=== PATIENT | female | born 1960 | race Caucasian/White ===

== ENCOUNTER 2016-07-16 03:46 | Emergency (ER) | payer OTHER ==
[2016-07-16 04:27] LABS: #Basophils 0.1 thou/uL (0.0-0.2); #Eosinphils 0.4 thou/uL (0.0-0.7); #Lymphocytes 3.4 thou/uL (1.20-3.40); #Monocytes 0.7 thou/uL (0.11-0.59); #Neutrophils 4.3 thou/uL (1.40-6.50); %Basophils 1.4 % (0.0-1.0); %Monocytes 7.7 % (0.0-10.0); Mean Platelet Volume 8.2 fL (7.4-10.4); White Blood Cell (WBC) Count 8.8 thou/uL (4.8-10.8)
[2016-07-16 04:30] LABS: PTT 31.8 SEC (22.9-36.1); Prothrombin Time 12.7 SEC (12.0-14.7)
[2016-07-16 04:39] LABS: ALT (SGPT) 18 U/L (0-55); AST (SGOT) 17 U/L (5-34); Alkaline Phosphatase 64 U/L (40-150); Anion Gap 11 mmol/L (10-20); BUN (Urea Nitrogen) 14 mg/dL (9.8-20.1); Bilirubin, Total 0.3 mg/dL (0.2-1.2); Calc. Creatinine Clearance 0 mL/min (70-130); Calcium 8.9 mg/dL (7.8-10.44); Carbon Dioxide 22 mmol/L (22-29); Chloride 111 mmol/L (98-107); Estimated GFR-MDRD 89; Globulin 2.5 g/dL (2.4-3.5); Protein, Total 6.3 g/dL (6.0-8.3)
[2016-07-16 04:41] LABS: Troponin I 0.016 ng/mL (< 0.028)
--- NOTE | 2016-07-16 07:22 | ERRECORD ---
[facility] EMERGENCY RECORD HPI CVA (03:58 DHAM) CHIEF COMPLAINT: Patient presents for evaluation of motor deficits, arm weakness, facial droop, leg weakness, slurred speech, right arm weakness, right hand weakness, left leg weakness, aphasia. HISTORIAN: History provided by patient, History provided by patient's spouse, , awoke at 0300 with right facial droop, right arm and right leg weakness and completely slurred speech. This lasted 10 minutes and resolved. 15 minutes later it recurred and again lasted 10 minutes and resolved. They drove here which took 20 minutes. She is completely normal at this time. No prior episodes like this in the past. LOCATION: Symptoms are localized, most severe to the right side of the face, most severe to the right arm, most severe to the right leg, most severe to speech. QUALITY: Patient is alert and oriented to person, place and time, [place] coma score is 15. SEVERITY: Current severity of pain rated as 0/10. TIME COURSE: Sudden onset of symptoms, 45, minutes prior to arrival, Symptoms have resolved, are intermittent. ASSOCIATED WITH: No associated anticoagulant use, No associated aphasia, No associated chest pain, Associated with dysarthria, No associated dysphagia, No associated headache, No associated nausea, Denies neck pain, No associated numbness, No associated pain, Associated with paralysis, No associated seizures, Denies syncope, No associated tremors, No associated visual disturbances, denies vertigo, No associated vomiting. RELIEVED BY: Patient's condition relieved by time. RISK FACTORS: Ischemic risk factors, include smoking, No hemorrhagic risk factors, No subarachnoid hemorrhage risk factors, CVA/TIA risk factors, Smoking, Oral contraceptive. NIHSS: CVA assessment findings: Level of consciousness: alert, keenly responsive (0), Questions: answers both questions correctly (0), Commands: performs both tasks correctly (0), Best gaze: normal (0), Visual: no visual loss (0), Facial palsy: normal symmetrical movement (0), Motor Left Arm: no drift, arm stays 90/45 degrees for full 10 seconds (0), Motor Right Arm: no drift, arm stays 90/45 degrees for full 10 seconds (0), Motor left leg: no drift, leg stays at 30 degrees for full five seconds (0), Motor right leg: no drift, leg stays at 30 degrees for full five seconds (0), Limb ataxia absent (0), Sensory: normal, no sensory loss (0), Best language: no aphasia; normal (0), Dysarthria: normal (0), Extinction and Inattention: normal (0), Total score 0. ROS (04:06 DHAM) CONSTITUTIONAL: Negative constitutional review of systems, Historian denies chills, denies fatigue, denies fever. &a-1R&a+25V*p+0X*[id number]*c202B*c15G*c2P*p-0X&a-25V&a+1R Name: Obey Blanco : 1960 F56 MedRec: [id number] AcctNum: [id number] Prepared: ThuJul 16, 2016 09:04 by Interface Page 1 of 6 pMD [facility] EMERGENCY RECORD EYES: Negative eye review of systems. ENT: Negative ears, nose, throat review of systems. CARDIOVASCULAR: Negative cardiovascular review of systems, Historian denies chest pain, denies diaphoresis, denies exercise intolerance, denies palpitations. RESPIRATORY: Negative respiratory review of systems, Historian denies cough, denies shortness of breath, denies sputum, denies wheezing. GI: Negative gastrointestinal review of systems, Historian denies abdominal pain, denies anorexia, denies appetite changes, denies nausea, denies vomiting. GENITOURINARY FEMALE: Historian denies dysuria, denies frequency, denies hesitancy, denies vaginal bleeding, denies vaginal discharge, denies vaginal itching. MUSCULOSKELETAL: Negative musculoskeletal review of systems, Historian denies arthralgias, denies injury, denies myalgias. SKIN: Negative skin review of systems, Historian denies rash, denies skin lesions. NEUROLOGIC: Historian denies confusion, reports focal weakness, reports gait changes, denies headache, reports paralysis, denies paresthesias, denies seizures, reports speech changes. ENDOCRINE: Negative endocrine review of systems. HEMO/LYMPHATIC: Normal hematologic/lymphatic system review. ALLERGIC/IMMUNOLOGIC: Normal allergy/immunologic system review. PSYCHIATRIC: Negative psychiatric review of systems. PAST MEDICAL HISTORY (03:58 AADK) MEDICAL HISTORY: Flu vaccine not up to date, Tetanus not up to date, Pneumococcal vaccine not up to date, Notes: MITRAL PROLAPSE, Past medical history includes cardiac history, unspecified arrhythmia, arrhythmia, SKIPS BEATS. REVIEWED 07/16/16. FEMALE SURGICAL HISTORY: Surgical history of hysterectomy, "TUMMY TUCK", Surgical history of orthopedic surgery, LEFT KNEE x 3 and a 4th for artificial knee replacement. REVIEWED 07/16/16. PSYCHIATRIC HISTORY: Psychiatric history includes, depression, REVIEWED 07/16/16. SOCIAL HISTORY: Patient currently uses tobacco, Patient smokes cigarettes, Patient smokes 1/2 packs per day, Patient denies alcohol use, Patient denies drug use. REVIEWED 07/16/16. FAMILY HISTORY: Maternal history of neurologic disorder, ischemic cerebral vascular accident, Family history includes early coronary artery disease, mother, father, both with CAD/CABG in early to mid 50s. REVIEWED 07/16/16. KNOWN ALLERGIES No Known Allergies (Unconfirmed) No Known Drug Allergies &a-1R&a+25V*p+0X*[id number]*c202B*c15G*c2P*p-0X&a-25V&a+1R Name: Obey Blanco : 1960 F56 MedRec: [id number] AcctNum: [id number] Prepared: ThuJul 16, 2016 09:04 by Interface Page 2 of 6 pMD [facility] EMERGENCY RECORD CURRENT MEDICATIONS (04:10 AADK) Premarin: TABLET : Strength - 0.9 mg : ORAL Patient Dose: 1 tab(s) Oral once a day. Lexapro: TABLET : Strength - 10 mg : ORAL Patient Dose: 1 tab(s) Oral once a day. VITAL SIGNS VITAL SIGNS: BP: 157/89, Pulse: 75, Resp: 20, Temp: 98.4, Pain: 0, O2 sat: 93 on RA, Time: 07/16/2016 03:52. (03:52 AADK) BP: 124/74, Pulse: 66, Resp: 14, O2 sat: 95 on Room Air, Time: 07/16/2016 04:08. (04:08 MVIL) BP: 113/72, Pulse: 68, Resp: 19 (Non-Labored), Pain: 0, O2 sat: 95 on Room Air, Time: 07/16/2016 04:15. (04:15 AADK) BP: 150/82, Pulse: 65, Resp: 14 (Non-Labored), Pain: 0, O2 sat: 96 on Room Air, Time: 07/16/2016 04:30. (04:30 AADK) BP: 125/80, Pulse: 58, Resp: 15 (Non-Labored), Pain: 0, O2 sat: 94 on Room Air, Time: 07/16/2016 04:45. (04:45 AADK) (03:52 AADK) BP: 144/77, Pulse: 65, Resp: 18 (Non-Labored), Pain: 0, O2 sat: 94 on Room Air, Time: 07/16/2016 05:00. (05:00 AADK) BP: 116/74, Pulse: 58, Resp: 15 (Non-Labored), Pain: 0, O2 sat: 93 on Room Air, Time: 07/16/2016 05:15. (05:15 AADK) BP: 129/76, Pulse: 66, Resp: 18 (Non-Labored), Pain: 0, O2 sat: 92 on Room Air, Time: 07/16/2016 05:30. (05:30 AADK) BP: 126/69, Pulse: 67, Resp: 17 (Non-Labored), Pain: 0, O2 sat: 91 on Room Air, Time: 07/16/2016 05:45. (05:45 AADK) BP: 135/79, Pulse: 62, Resp: 17 (Non-Labored), Temp: 98.1 (Oral), Pain: 0, O2 sat: 93 on Room Air, Time: 07/16/2016 06:00. (06:00 AADK) BP: 124/78, Pulse: 60, Resp: 15 (Non-Labored), Pain: 0, O2 sat: 92 on Room Air, Time: 07/16/2016 06:15. (06:15 AADK) BP: 145/81 (Sitting), Pulse: 75, Resp: 20, Pain: 0, O2 sat: 100 on Room Air, Time: 07/16/2016 06:30. (06:30 MVIL) PHYSICAL EXAM (04:07 DHAM) CONSTITUTIONAL: Vital Signs Reviewed, Patient afebrile, Pulse normal, Blood pressure normal, Respiratory rate normal, Normal pulse oximetry, Patient appears non toxic, Patient appears pain free, Patient alert and oriented to person, place and time, Nursing notes reviewed. HEAD: Head exam included findings of head atraumatic, normocephalic. EYES: Eye exam included findings of eyelids normal to inspection, Pupils equally round and reactive to light, Extraocular muscles intact, Conjunctiva normal, Sclera normal, Eye exam included findings of anterior chamber clear. ENT: Ear exam normal, external ear normal, tympanic membranes normal, no foreign body, no drainage, no bleeding, hearing normal, Nose exam normal, no nasal deformity, no bleeding from nares, no &a-1R&a+25V*p+0X*q2381T*c202B*c15G*c2P*p-0X&a-25V&a+1R Name: Obey Blanco : 1960 F56 MedRec: [id number] AcctNum: [id number] Prepared: ThuJul 16, 2016 09:04 by Interface Page 3 of 6 pMD [facility] EMERGENCY RECORD bleeding from hypopharynx, no foreign body visualized, no septal hematoma, no septal necrosis, No turbinate mucosa discharge, Pharynx exam normal, not injected, no swelling, symmetrical, Uvula exam normal, midline, no edema, Tonsil exam normal, not enlarged, no exudates, Mouth exam normal, mucous membranes moist, no drooling, no lesions, no lacerations, no tongue elevation, teeth normal. NECK: Neck exam included findings of normal range of motion, Trachea midline, Thyroid normal, no meningeal signs, no cervical adenopathy, no tenderness, no contusions, no ecchymosis. RESPIRATORY CHEST: Respiratory exam included findings of no respiratory distress, Breath sounds clear, No wheezing, No rales, No rhonchi, Breath sounds not diminished, Chest exam included findings of chest movement symmetrical. CARDIOVASCULAR: Cardiovascular exam included findings of heart rate regular rate and rhythm, Heart sounds normal, normal S1, normal S2, no murmurs, no rub, no gallop. ABDOMEN FEMALE: Abdominal exam included findings of abdomen nontender, Bowel sounds normal, Liver normal, Spleen normal, no distension, no pulsatile masses, no peritoneal signs, no ventral hernia. BACK: Back exam normal. UPPER EXTREMITY: Upper extremity exam normal, Upper extremity exam included findings of inspection normal, no abrasions, no contusions, no deformity, no lacerations, Range of motion normal, Motor strength normal, Sensation intact, Brachial pulse normal, Radial pulse normal. LOWER EXTREMITY: Lower extremity exam normal, Lower extremity exam included findings of inspection normal, no abrasions, no contusions, no deformity, no lacerations, Range of motion normal, Motor strength normal, Sensation intact, Pedal pulse normal, Joel's negative, no edema, no calf tenderness. NEURO: Neuro exam findings include patient oriented to person, place and time, Speech normal, Gait normal, [place] coma scale 15, Memory normal, Cranial nerves intact, Deep tendon reflexes normal, no focal motor deficits, no focal sensory deficits. SKIN: Skin exam included findings of skin warm, dry, and normal in color, no rash. LYMPHATIC: Lymphatic exam normal, Lymphatic exam included findings of cervical nodes normal. PSYCHIATRIC: Psychiatric exam included findings of patient oriented to person place and time, Normal affect, Judgment normal, Insight normal, Remote memory normal, Recent memory normal, Concentration normal, No suicidal ideations, No homicidal ideations. [facility]04:05 [facility] 12 LEAD EKG INTERPRETATION: 12 lead EKG interpreted by Emergency Department Physician at time of study, 12 lead EKG shows normal sinus rhythm, Rate (beats per minute): 69, with no ectopics, No previous EKG available for comparison, Interpretation: normal EKG, Conduction normal, ST segments normal, T waves normal, Deputy normal, Clinical &a-1R&a+25V*p+0X*k9982L*c202B*c15G*c2P*p-0X&a-25V&a+1R Name: Obey Blanco : 1960 F56 MedRec: [id number] AcctNum: [id number] Prepared: ThuJul 16, 2016 09:04 by Interface Page 4 of 6 pMD [facility] EMERGENCY RECORD impression: Normal EKG. RADIOLOGYINTERPRETATION (04:17 [facility] HEAD: Head CT negative, without contrast, no bleed, no mass, no acute ischemic stroke, no acute changes. MEDICATION ADMINISTRATION SUMMARY Drug Name: Adult Low Dose Aspirin, Dose Ordered: 4 tab(s), Route: Oral, Status: Given, Time: 04:25 07/16/2016, Detailed record available in Medication Service section. DOCTOR NOTES TEXT: ABCD2=4. Pt discussed with Dr. Sethi at [facility] at 0424 who accepts in transfer PENDING BED AVAILABILITY. There are 18 holding already. Family is ok with us calling [facility] and we have notified the transfer center at 0430 to contact [facility]. At 0430 while discussing the findings on the CT and our plans for transfer, the pt had a 5-10 second spell of slurred speech and just a hint of ataxia of the right upper extremity. This resolved very quickly. This occurred just after her swallow study and taking ASA 324mg orally. (04:10 DHAM) 0505 I repeated NIHSS=1 (with only the right side sensation feeling different than the left.) She had some right leg drift per the nurse just a minute ago but I do not detect it at this time. she is very accurate with finger to nose bilat but just a bit slower on the right side. Her fine motor skills are decreased on the right hand as evidenced by her "messy signature" with the right hand as well. I suspect the patient will have some ischemic findings on MRI but with her NIHSS being 1-2, she does not appear to be indicated for tpa at this time. I have discussed this with the pt and her . (05:07 DHAM) Transfer center connected us with Dr. Mendez who would not change our care at this point. He would not recommend statin at this point. (05:24 DHAM) Have discussed the pt with Dr. Escalante at [facility] in [place]. The hospitalist has accepted the pt there at 0547. We are awaiting bed assignment but beds are available. (05:43 DHAM) PROBLEM LIST No recorded problems DIAGNOSIS (05:48 DHAM) FINAL: PRIMARY: transient ischemic attack. PRESCRIPTION No recorded prescriptions DISPOSITION PATIENT: Disposition Type: Transfer, Disposition: [facility]. &a-1R&a+25V*p+0X*[id number]*c202B*c15G*c2P*p-0X&a-25V&a+1R Name: Obey Blanco : 1960 F56 MedRec: [id number] AcctNum: [id number] Prepared: ThuJul 16, 2016 09:04 by Interface Page 5 of 6 pMD [facility] EMERGENCY RECORD (05:48 MAX) Patient left the department. (07:08 DORIAN) Hebert: DORIAN=MABEL Bermudez, Penny SANTANA=MD Raza, [employer] MVIL=MABEL Ruano, Kaitlin &a-1R&a+25V*p+0X*o4832T*c202B*c15G*c2P*p-0X&a-25V&a+1R Name: Obey Blanco : 1960 F56 MedRec: [id number] AcctNum: [id number] Prepared: ThuJul 16, 2016 09:04 by Interface Page 6 of 6 pMD MTDD
--- NOTE | 2016-07-16 07:27 | PICIS ---
[facility] EMERGENCY RECORD TRIAGE (ThuJul 16, 2016 03:52 AADK) PATIENT: NAME: Obey Blanco, AGE: 56, GENDER: female, : Gay 1960, TIME OF GREET: ThuJul 16, 2016 03:47, PREFERRED LANGUAGE: Setswana, ETHNICITY: Not or , ECODE BILLING MAP: [facility], SSN: [id number], Zip Code: [address], KG WEIGHT: 66.68 (est.), PHONE: , , , PERSON ID: [id number], PCP: DO LAUREN JOHN SCOTT. (ThuJul 16, 2016 03:52 AADK) COMPLAINT: POSSIBLE STROKE. (ThuJul 16, 2016 03:52 AADK) ADMISSION: URGENCY: 2 Emergent, ADMISSION SOURCE: Home, TRANSPORT: Ambulance- [facility], BED: ER -01. (ThuJul 16, 2016 03:52 AADK) PAIN: No complaint of pain. (03:58 AADK) SIRS SCORING: Heart Rate 55-109 (0), Temp range 96.8-101.1 (0), respiratory rate 12-24 (0), Mental Status altered: no (0), Total SIRS Score 0, Infection or Suspected Infection: No. (03:58 AADK) TRIAGE SCREENING: Patient denies suicidal ideation, Patient denies presence of domestic violence. (03:58 AADK) LMP: LMP: Hysterectomy. (03:58 AADK) PROVIDERS: TRIAGE NURSE: Penny Bermudez RN. (ThuJul 16, 2016 03:52 AADK) PREVIOUS VISIT ALLERGIES: No Known Drug Allergies. (ThuJul 16, 2016 03:52 AADK) No Known Drug Allergies. (03:58 AADK) KNOWN ALLERGIES No Known Allergies (Unconfirmed) No Known Drug Allergies CURRENT MEDICATIONS (04:10 AADK) Premarin: TABLET : Strength - 0.9 mg : ORAL Patient Dose: 1 tab(s) Oral once a day. Lexapro: TABLET : Strength - 10 mg : ORAL Patient Dose: 1 tab(s) Oral once a day. VITAL SIGNS VITAL SIGNS: BP: 157/89, Pulse: 75, Resp: 20, Temp: 98.4, Pain: 0, O2 sat: 93 on RA, Time: 07/16/2016 03:52. (03:52 AADK) BP: 124/74, Pulse: 66, Resp: 14, O2 sat: 95 on Room Air, Time: 07/16/2016 04:08. (04:08 MVIL) BP: 113/72, Pulse: 68, Resp: 19 (Non-Labored), Pain: 0, O2 sat: 95 on Room Air, Time: 07/16/2016 04:15. (04:15 AADK) BP: 150/82, Pulse: 65, Resp: 14 (Non-Labored), Pain: 0, O2 sat: 96 on Room Air, Time: 07/16/2016 04:30. (04:30 AADK) BP: 125/80, Pulse: 58, Resp: 15 (Non-Labored), Pain: 0, O2 sat: 94 on Room Air, Time: 07/16/2016 04:45. (04:45 AADK) (03:52 AADK) BP: 144/77, Pulse: 65, Resp: 18 (Non-Labored), Pain: 0, O2 sat: 94 on &a-1R&a+25V*p+0X*l4268K*c202B*c15G*c2P*p-0X&a-25V&a+1R Name: bOey Blanco : 1960 F56 MedRec: [id number] AcctNum: [id number] Prepared: ThuJul 16, 2016 09:10 by Interface Page 1 of 15 pMD [facility] EMERGENCY RECORD Room Air, Time: 07/16/2016 05:00. (05:00 AADK) BP: 116/74, Pulse: 58, Resp: 15 (Non-Labored), Pain: 0, O2 sat: 93 on Room Air, Time: 07/16/2016 05:15. (05:15 AADK) BP: 129/76, Pulse: 66, Resp: 18 (Non-Labored), Pain: 0, O2 sat: 92 on Room Air, Time: 07/16/2016 05:30. (05:30 AADK) BP: 126/69, Pulse: 67, Resp: 17 (Non-Labored), Pain: 0, O2 sat: 91 on Room Air, Time: 07/16/2016 05:45. (05:45 AADK) BP: 135/79, Pulse: 62, Resp: 17 (Non-Labored), Temp: 98.1 (Oral), Pain: 0, O2 sat: 93 on Room Air, Time: 07/16/2016 06:00. (06:00 AADK) BP: 124/78, Pulse: 60, Resp: 15 (Non-Labored), Pain: 0, O2 sat: 92 on Room Air, Time: 07/16/2016 06:15. (06:15 AADK) BP: 145/81 (Sitting), Pulse: 75, Resp: 20, Pain: 0, O2 sat: 100 on Room Air, Time: 07/16/2016 06:30. (06:30 MVIL) NURSING ASSESSMENT: DYSPHAGIA SCREENING (04:25 AADK) SWALLOWING EVALUATION: Patient clear for swallowing evaluation; no positive responses, Swallowing evaluation approved by Dr. PERSON, Following administration of 3 ounces of water by a cup, patient exhibited no signs or symptoms of aspiration, passed evaluation, Notes: PT WITH POSSIBLE STROKE/TIA SYMPTOMS. NURSING ASSESSMENT: FALL RISK (04:38 AADK) FALL RISK: Fall risk assessment findings include: no history of falls (0), No bed rest greater than 2 days (0), No use of level of consciousness altering agents with mentation or cognitive changes (0), No change in blood pressure (0), No sensory deficits (0), No impaired mobility (0), Neurologic diagnosis (3), No elimination problems (0), No confusion (0), Total score 3. HENDRICH II FALL RISK: Hendrich II Fall Risk assessment findings include patient not confused, disoriented or impulsive, not symptomatic or depressed, no altered elimination, no dizziness or vertigo, female, no antiepileptics (anticonvulsants) administered, no Benzodiazepines administered, Able to rise in a single movement; no loss of balance with steps(0), Total score 0, Notes: FALL RISK SCORE EVALUATED WHEN PT WAS "NORMAL" NOT DURING STROKE/TIA LIKE SYMPTOMS., Score less than 5. Patient not high risk for falls. NURSING ASSESSMENT: NEURO GCS: (6) Obeying command:, (5) Orientated:, (4) Spontaneous eye opening., Result: 15. (03:52 AADK) (6) Obeying command:, (5) Orientated:, (4) Spontaneous eye opening., Result: 15. (04:50 AADK) (6) Obeying command:, (5) Orientated:, (4) Spontaneous eye opening., Result: 15. (06:00 AADK) NIHSS: CVA assessment findings: Level of consciousness: alert, keenly responsive (0), Questions: answers both questions correctly (0), Commands: performs both tasks correctly (0), Best gaze: normal (0), Visual: no visual loss (0), Facial palsy: normal symmetrical movement (0), Motor Left Arm: no drift, arm stays 90/45 degrees for &a-1R&a+25V*p+0X*f6239V*c202B*c15G*c2P*p-0X&a-25V&a+1R Name: Obey Blanco : 1960 F56 MedRec: [id number] AcctNum: [id number] Prepared: ThuJul 16, 2016 09:10 by Interface Page 2 of 15 pMD [facility] EMERGENCY RECORD full 10 seconds (0), Motor Right Arm: no drift, arm stays 90/45 degrees for full 10 seconds (0), Motor left leg: no drift, leg stays at 30 degrees for full five seconds (0), Motor right leg: no drift, leg stays at 30 degrees for full five seconds (0), Limb ataxia absent (0), Sensory: normal, no sensory loss (0), Best language: no aphasia; normal (0), Dysarthria: normal (0), Extinction and Inattention: normal (0), Total score 0. (03:52 AADK) CVA assessment findings: Level of consciousness: alert, keenly responsive (0), Questions: answers both questions correctly (0), Commands: performs both tasks correctly (0), Best gaze: normal (0), Visual: no visual loss (0), Facial palsy: normal symmetrical movement (0), Motor Left Arm: no drift, arm stays 90/45 degrees for full 10 seconds (0), Motor Right Arm: no drift, arm stays 90/45 degrees for full 10 seconds (0), Motor left leg: no drift, leg stays at 30 degrees for full five seconds (0), Motor right leg: drift, leg drifts down but does not hit bed or other support (1), Limb ataxia absent (0), Sensory: mild to moderate sensory loss; patient feels pinprick is less sharp or is dull on the affected side; or there is a loss of superficial pain with pinprick, but patient is aware he/she is being touched (1), Best language: no aphasia; normal (0), Dysarthria: normal (0), Extinction and Inattention: normal (0), Total score 2. (04:50 AADK) CVA assessment findings: Level of consciousness: alert, keenly responsive (0), Questions: answers both questions correctly (0), Commands: performs both tasks correctly (0), Best gaze: normal (0), Visual: no visual loss (0), Facial palsy: normal symmetrical movement (0), Motor Left Arm: no drift, arm stays 90/45 degrees for full 10 seconds (0), Motor Right Arm: drift, arm drifts down but does not hit bed or other support (1), Motor left leg: no drift, leg stays at 30 degrees for full five seconds (0), Motor right leg: drift, leg drifts down but does not hit bed or other support (1), Limb ataxia absent (0), Sensory: mild to moderate sensory loss; patient feels pinprick is less sharp or is dull on the affected side; or there is a loss of superficial pain with pinprick, but patient is aware he/she is being touched (1), Best language: no aphasia; normal (0), Dysarthria: normal (0), Extinction and Inattention: normal (0), Total score 3. (06:00 AADK) CONSTITUTIONAL: Patient arrives, via hospital wheelchair, Unsteady gait, Assistance to cart, History obtained from patient, Patient appears comfortable, Patient cooperative, Patient alert, Oriented to person, place and time, Skin warm, Skin dry, Skin normal in color, Mucous membranes pink, Mucous membranes moist, Patient is well-groomed, Patient complains of POSSIBLE STROKE, PT PRESENTS TO ER WITH POSSIBLE STROKE. PT INITIALLY TRIAGED AT 0347 BUT WAS NOT IN THE COMPUTER FOR DOCUMENTATION. PT WITH RIGHT SIDED WEAKNESS WHEN NURSE WENT TO GET PT IN WAITING AREA. TAKEN TO ER BED #1 VIA HOSPITAL W/C. NOTED SOME DELAYED SPEECH INITIALLY ALSO. NOTIFIED DR PERSON UPON PT ARRIVAL TO BED #1. DR PERSON TO BED #1 WITHIN 1 MINUTE. NIHSS PERFORMED AND SCORE ZERO. PT SAID SHE "CAN'T BELIEVE I'M BACK TO NORMAL". PER SPOUSE, PT &a-1R&a+25V*p+0X*q3938I*c202B*c15G*c2P*p-0X&a-25V&a+1R Name: Obey Blanco : 1960 F56 MedRec: [id number] AcctNum: [id number] Prepared: ThuJul 16, 2016 09:10 by Interface Page 3 of 15 pMD [facility] EMERGENCY RECORD AWOKE AT 0300 AND WAS MOANING AND HAD "SLURRED SPEECH." PT COULDN'T SIT UP AT THAT TIME. HE HELPED HER TO SIT UP THEN TO THE BATHROOM. ONCE PT GOT UP FROM THE BATHROOM, SHE WAS BACK TO "NORMAL" PER SPOUSE. EPISODE LASTED ABOUT 10 MINUTES. SPOUSE SAID PT THEN HAD ANOTHER EPISODE LIKE THIS APPROX 20 MINUTES AFTER THE FIRST ONE. IT ALSO LASTED ABOUT 10 MINUTES AND THEN SPOUSE DECIDED TO BRING PT TO ER. SPOUSE SAID PT AGAIN BACK TO NORMAL AFTER ABOUT 10 MINUTES AND WAS ABLE TO WALK SELF TO VEHICLE. PT DENIES ARGUETA OR ANY PAIN. NO HX OF HTN OR HEART DISEASE. PT'S MOTHER HAD HX OF CVA. (03:52 AADK) NEURO: Neuro assessment findings include onset of symptoms: 0300 TODAY, Pupils equally round and reactive to light, Left pupil 3 mm in size, Right pupil 3 mm in size, Able to close eyes, Face symmetrical, Speech normal, Hand grasps equal, Upper extremity strength strong, no numbness to upper extremities, Lower extremity strength strong, Foot press equal, no numbness to lower extremities. (03:52 AADK) Pupils equally round and reactive to light, Left pupil 3 mm in size, Right pupil 3 mm in size, Able to close eyes, Face symmetrical, Speech normal, no facial droop. (06:00 AADK) SAFETY: Side rails up, Cart/Stretcher in lowest position, Family at bedside, Call light within reach, Hospital ID band on, Patient in view of the nursing station. (03:52 AADK) Side rails up, Cart/Stretcher in lowest position, Family at bedside, Call light within reach, Hospital ID band on, Patient in view of the nursing station, Notes: NOTIFIED DR PERSON AT 0500 OF CHANGES IN NIHSS., Physician notified of above findings. (04:50 AADK) Side rails up, Cart/Stretcher in lowest position, Family at bedside, Call light within reach, Hospital ID band on, Patient in view of the nursing station. (06:00 AADK) VITAL SIGNS: BP: 157, / 89, Pulse: 75, Resp: 20, Temp: 98.4, Pain: 0, O2 sat: 93, on: RA. (03:52 AADK) NURSING ASSESSMENT: SKIN (04:39 AADK) SKIN: Skin assessment findings include skin warm, Skin dry, Skin normal in color, Notes: NO SKIN ISSUES NOTED. NURSING PROCEDURE: BAND STRAIGHTENER PATIENT IDENTIFIER: Patient actively involved in identification process, Patient's identity verified by patient stating name, Patient's identity verified by patient stating date. (03:55 AADK) BAND STRAIGHTENER: Patient placed on court monitor, Heart rate: 60's, showing normal sinus rhythm, without ectopy, Strip posted on chart, Patient placed on non-invasive blood pressure monitor, with disposable blood pressure cuff applied, Patient placed on continuous pulse oximetry, Adult/pediatric oxisensor applied, Oxygen saturation 95%. (03:55 AADK) FOLLOW-UP: After procedure, alarms set and on, After procedure, patient tolerating monitoring. (04:15 AADK) &a-1R&a+25V*p+0X*n1283G*c202B*c15G*c2P*p-0X&a-25V&a+1R Name: Obey Blanco : 1960 F56 MedRec: [id number] AcctNum: [id number] Prepared: ThuJul 16, 2016 09:10 by Interface Page 4 of 15 pMD [facility] EMERGENCY RECORD NURSING PROCEDURE: COMMUNICATIONS (06:37 AADK) COMMUNICATIONS: Ambulance service, contacted at 0637, Name of provider [facility], Person contacted [facility], requested for transfer to another facility, by advanced life support transport, PT GOING TO [facility], N ROOM 426. NURSING PROCEDURE: EKG CHART (03:54 AADK) PATIENT IDENTIFIER: Patient actively involved in identification process, Patient's identity verified by patient stating name, Patient's identity verified by patient stating date. EKG: EKG indicated for POSSIBLE STROKE, 12 lead EKG performed on the left chest, done by Davina RIBEIRO RN, first EKG. FOLLOW-UP: After procedure, EKG for interpretation given to Dr. PERSON. NURSING PROCEDURE: IV PATIENT IDENITIFIER: Patient actively involved in identification process, Patient's identity verified by patient stating name, Patient's identity verified by hospital ID bracelet. (04:20 MVIL) Patient actively involved in identification process, Patient's identity verified by patient stating name, Patient's identity verified by hospital ID bracelet. (04:34 MVIL) IV SITE 1: IV therapy indicated for medication administration, IV established, to the right hand, using an 18 gauge catheter, in two attempts, Saline lock established, Flushed with normal saline (mls): 10, Labs drawn at time of placement, labeled in the presence of the patient and sent to lab. (04:20 MVIL) IV SITE 2: IV therapy indicated for medication administration, IV established, to the right hand, using a 20 gauge catheter, in one attempt, Saline lock established, Flushed with normal saline (mls): 10. (04:34 MVIL) FOLLOW-UP SITE 1: After procedure, 2x3 ensure dressing applied, After procedure, IV line connections checked and properly labeled, After procedure, no drainage at IV site, After procedure, no swelling at IV site, After procedure, no redness at IV site. (04:20 MVIL) FOLLOW-UP SITE 2: After procedure, 2x3 ensure dressing applied, After procedure, IV line connections checked and properly labeled, After procedure, no drainage at IV site, After procedure, no swelling at IV site, After procedure, no redness at IV site. (04:35 MVIL) SAFETY: Side rails up, Cart/Stretcher in lowest position, Family at bedside, Call light within reach, Hospital ID band on. (04:34 MVIL) NURSING PROCEDURE: NURSE NOTES NURSES NOTES: Notes: DR PERSON ASKED IF EMS HAS BEEN CALLED. INFORMED HIM PT NOT ACCEPTED AT [facility]. DR PERSON STATES HE THOUGHT PT WAS ACCEPTED. CALLED BACK TO [facility] TRANSFER CENTER, SPOKE WITH CARRIE AGAIN, SHE SAID DR MENCHACA WILL ONLY ACCEPT PT WHEN [facility] GETS A BED AVAILABLE AND NO BED AVAILABLE NOW. INFORMED DR PERSON OF THIS AND HE SAID LET'S TRANSFER PT TO [facility]. INFORMED &a-1R&a+25V*p+0X*q9276X*c202B*c15G*c2P*p-0X&a-25V&a+1R Name: Obey Blanco : 1960 F56 MedRec: [id number] AcctNum: [id number] Prepared: ThuJul 16, 2016 09:10 by Interface Page 5 of 15 pMD [facility] EMERGENCY RECORD CARRIE OF THIS AND SHE SAID TO FAX A FACE SHEET TO [employer] [employer] AT [phone]. FAXED FACE SHEET TO [facility] IN [place]. CONFIRMATION RECEIVED AT 1340. (04:30 AADK) Notes: DR PERSON TO BEDSIDE TO PERFORM ANOTHER NIHSS STROKE SCALE. (05:03 AADK) Notes: PER DR PERSON, CONTACT TRANSFER CENTER FOR TRANSFER TO [facility]. ASKED DR PERSON IF HE WANTS TO AUTO LAUNCH AND HE SAID NO. (04:13 AADK) Ice chips given to patient, Notes: OK TO GIVE ICE CHIPS PER DR PERSON. ALSO CALLED BACK TO [facility] TRANSFER CENTER AND ASKED CARRIE IF SHE HAS HEARD ANYTHING BACK FROM [employer] [employer] [facility]. SHE SAID SHE HAS NOT HEARD YET; ASKED HER TO PLEASE CONTACT THEM AGAIN. SHE ASKED IF CHANGE IN PT CONDITION, INFORMED HER PT HAVING DECREASED SENSATION ON RIGHT SIDE NOW. SHE STATES SHE WILL CONTACT [employer]URITY MANAGER AGAIN. DR PERSON UPDATED. (05:13 AADK) Notes: CARRIE CALLED AND ASKED IF WE WANT HER TO CONSULT DR MENDEZ AND TOLD HER YES. (05:17 AADK) Notes: CARRIE CALLED BACK WITH DR MENDEZ ON THE PHONE. DOC TO DOC REPORT DONE AT THIS TIME. (05:20 AADK) Notes: CARRIE CALLED BACK, STATES SHE SPOKE TO [employer] RECONDITIONING INSPECTOR AT [facility] IN [place]. PER CANNED FOOD RECONDITIONING INSPECTOR, SHE IS HAVING AN EMERGENCY AT THEIR HOSPITAL AT THIS MOMENT AND IT WILL BE A WHILE BEFORE SHE CAN GET BACK WITH TRANSFER CENTER. NOTIFIED DR PERSON. PER DR PERSON, CHECK WITH [facility] TO SEE IF THEY ACCEPT STROKE PATIENTS. IF THEY DO, THEN TRANSFER THERE, IF NOT, TRANSFER TO [facility] IN [place]. SAMANTA, RN CALLED CARRIE BACK AND ASKED ABOUT THE MED, SHE SAID THEY ARE NOT A STROKE CENTER. THIS NURSE UPDATED PT AND SPOUSE. THEY ARE OK WITH TRANSFER TO [facility] IN [place]. THEN CALLED CARRIE AT [facility] TRANSFER CENTER BACK, INFORMED HER WE WANT TO TRANSFER PT TO [facility]. SHE WILL CONTACT [facility] IN [place]. (05:30 AADK) Patient in no apparent distress, Pillow given to patient, Patient is awaiting disposition, Notes: NIHSS REPEATED AT THIS TIME, NOTED SLIGHT DRIFT IN RIGHT ARM THAT WAS NOT PRESENT PRIOR. PT WITHOUT LIMB ATAXIA BUT FOR PT TO MOVE RIGHT LEG AND GO UP/DOWN PEREZ IS MORE DIFFICULT THAN THE LEFT LEG. (06:00 AADK) Notes: TRANSFER CENTER REQUESTED FACE SHEET TO BE FAXED OVER TO [place]. FAX SUCCESSFULLY WENT THRU. (06:09 MVIL) Notes: KEELY FROM TRANSFER CENTER CALLED TO INFORM PATIENT WILL BE ACCEPTED TO [place]. (06:34 MVIL) NURSING PROCEDURE: TRANSFER TRANSFER: Reason for transfer need for specialized care, Diagnosis: TIA, Notes: PER CARRIE AT [facility] TRANSFER CENTER- THEY ARE HOLDING 18 IN ER, NOT ABLE TO ACCEPT PT AT THIS TIME UNLESS SHE BECOMES CRITICAL, THEY DO HAVE [address] PERSON THEN TO BEDSIDE AND UPDATING PT & SPOUSE. (04:14 AADK) Reason for transfer need for specialized care, Diagnosis: TIA, Accepting institution: [facility], Accepting physician: DR WINKLER, Referring physician: DR PERSON, Transported by urgent ambulance, accompanied by &a-1R&a+25V*p+0X*r7199I*c202B*c15G*c2P*p-0X&a-25V&a+1R Name: Obey Blanco : 1960 F56 MedRec: [id number] AcctNum: [id number] Prepared: ThuJul 16, 2016 09:10 by Interface Page 6 of 15 pMD [facility] EMERGENCY RECORD emergency medical services personnel, Summary of Care printed, Copy of patient record prepared for receiving facility, Copy of diagnostic studies, Specific radiological studies sent: CD OF CT SCAN OF HEAD, Status of patient's valuables documented on chart, Medication reconciliation form prepared and sent to receiving facility, Patient consent for transfer signed, Family member contacted, SPOUSE AT BEDSIDE, Notes: ATTEMPTED TO CALL REPORT TO [phone]. SPOKE WITH SETH, SHE SAID THE NURSES ARE ALL IN HUDDLE AND IT WILL BE ABOUT 15 MINUTES BEFORE THEY CAN CALL BACK. GAVE SETH DIRECT PHONE # TO THIS ER FOR CALL BACK. (06:45 AADK) Report called to receiving facility, MABEL BONILLA, Provided opportunity to answer questions, Bed assigned 426, REPORT GIVEN BY MABEL ENGLAND, Notes: EMS HERE AT 0657, REPORT GIVEN TO KASH. PT TRANSFERRED FROM ER VIA STRETCHER AT 0704. PT INFORMATION PACKET GIVEN TO KASH W/EMS. (07:00 AADK) NOTES: Notes: PT GOING TO ROOM 426 ON 4N AT [facility]. (06:45 AADK) NURSING PROCEDURE: TRANSPORT TO TESTS PATIENT IDENTIFIER: Patient actively involved in identification process, Patient's identity verified by patient stating name, Patient's identity verified by patient stating date. (03:59 AADK) TRANSPORT TO TESTS: Transport indicated to facilitate diagnosis, Patient transported to CT scan, via cart, Accompanied by x-ray corrections identification technician, Transported with advanced life support care. (03:59 AADK) FOLLOW-UP: After procedure, patient returned to emergency department. (04:11 AADK) SAFETY: Side rails up, Cart/Stretcher in lowest position, Family at bedside, Call light within reach, Hospital ID band on, Patient in view of the nursing station. (04:11 AADK) ORDER DETAILS Order Name: BLOOD GLUCOSE MONITOR, Status: Done, Time: 04:01 07/16/2016, User: AADK, - Ordered for: MD Person Darren, - Entered by: MD Person Darren - ThuJul 16, 2016 03:58, - Quantity: 1, Order Name: BAND STRAIGHTENER ED, Status: Done, Time: 04:01 07/16/2016, User: AADK, - Ordered for: MD Person Darren, - Entered by: MD Person Darren - Hal Jul 16, 2016 03:58, - Quantity: 1, Order Name: Cardiac Profile w/CKMB & Troponin - I, Status: Active, Time: 03:58 07/16/2016, User: MAX, - Ordered for: MD ePrson Darren, - Entered by: MD Person Darren - ThuJul 16, 2016 03:58, - Quantity: 1, Order Name: CBC with Differential, Status: Active, Time: 03:58 &a-1R&a+25V*p+0X*n4483O*c202B*c15G*c2P*p-0X&a-25V&a+1R Name: Obey Blanco : 1960 F56 MedRec: [id number] AcctNum: [id number] Prepared: ThuJul 16, 2016 09:10 by Interface Page 7 of 15 pMD [facility] EMERGENCY RECORD 07/16/2016, User: MAX, - Ordered for: MD Person Darren, - Entered by: MD Person Darren - ThuJul 16, 2016 03:58, - Quantity: 1, Order Name: Comprehensive Metabolic Panel, Status: Active, Time: 03:58 07/16/2016, User: MAX, - Ordered for: MD Person Darren, - Entered by: MD Person Darren - ThuJul 16, 2016 03:58, - Quantity: 1, Order Name: CT Brain WO Con, Status: Active, Time: 03:53 07/16/2016, User: DORIAN, - Ordered for: MD Person Darren, - Entered by: MABEL Bermudez Angela - ThuJul 16, 2016 03:53, - Quantity: 1, Order Name: EKG 12 Lead in Emergency Room, Status: Active, Time: 03:58 07/16/2016, User: MAX, - Ordered for: MD Person Darren, - Entered by: MD Person Darren - ThuJul 16, 2016 03:58, - Quantity: 1, Order Name: ERRT Pulse Oximeter ER, Status: Active, Time: 03:58 07/16/2016, User: MAX, - Ordered for: MD Person Darren, - Entered by: MD Person Darren - ThuJul 16, 2016 03:58, - Quantity: 1, Order Name: NIHSS, Status: Done, Time: 04:00 07/16/2016, User: DORIAN, - Ordered for: MD Person Darren, - Entered by: MD Person Darren - ThuJul 16, 2016 03:58, - Quantity: 1, Order Name: Protime with INR, Status: Active, Time: 03:58 07/16/2016, User: MAX, - Ordered for: MD Person Darren, - Entered by: MD Person Darren - ThuJul 16, 2016 03:58, - Quantity: 1, Order Name: PTT, Status: Active, Time: 03:58 07/16/2016, User: MAX, - Ordered for: MD Person Darren, - Entered by: MD Person Darren - ThuJul 16, 2016 03:58, - Quantity: 1, Order Name: SALINE LOCK, Status: Done, Time: 04:20 07/16/2016, User: DORIAN, - Ordered for: MD Person Darren, - Entered by: MD Person Darren - ThuJul 16, 2016 03:58, - Quantity: 1. MEDICATION ADMINISTRATION SUMMARY Drug Name: Adult Low Dose Aspirin, Dose Ordered: 4 tab(s), Route: Oral, Status: Given, Time: 04:25 07/16/2016, Detailed record available in Medication Service section. MEDICATION SERVICE &a-1R&a+25V*p+0X*v9153K*c202B*c15G*c2P*p-0X&a-25V&a+1R Name: Obey Blanco : 1960 F56 MedRec: [id number] AcctNum: [id number] Prepared: ThuJul 16, 2016 09:10 by Interface Page 8 of 15 pMD [facility] EMERGENCY RECORD Adult Low Dose Aspirin: Order: Adult Low Dose Aspirin (aspirin) - Dose: 4 tab(s) : Oral Schedule: Now Ordered by: Grupo Person MD Entered by: Grupo Person MD ThuJul 16, 2016 04:30 Documented as given by: Kaitlin Ruano RN ThuJul 16, 2016 04:25 Patient, Medication, Dose, Route and Time verified prior to administration. Amount given: 4 TABS, Correct patient, time, route, dose and medication confirmed prior to administration, Patient advised of actions and side-effects prior to administration, Allergies confirmed and medications reviewed prior to administration, Patient in position of comfort, Side rails up, Cart in lowest position, Family at bedside. : Follow Up : Response assessment performed, No signs or symptoms of allergic reaction noted. (05:00 AADK) HPI CVA (03:58 DHAM) CHIEF COMPLAINT: Patient presents for evaluation of motor deficits, arm weakness, facial droop, leg weakness, slurred speech, right arm weakness, right hand weakness, left leg weakness, aphasia. HISTORIAN: History provided by patient, History provided by patient's spouse, , awoke at 0300 with right facial droop, right arm and right leg weakness and completely slurred speech. This lasted 10 minutes and resolved. 15 minutes later it recurred and again lasted 10 minutes and resolved. They drove here which took 20 minutes. She is completely normal at this time. No prior episodes like this in the past. LOCATION: Symptoms are localized, most severe to the right side of the face, most severe to the right arm, most severe to the right leg, most severe to speech. QUALITY: Patient is alert and oriented to person, place and time, [place] coma score is 15. SEVERITY: Current severity of pain rated as 0/10. TIME COURSE: Sudden onset of symptoms, 45, minutes prior to arrival, Symptoms have resolved, are intermittent. ASSOCIATED WITH: No associated anticoagulant use, No associated aphasia, No associated chest pain, Associated with dysarthria, No associated dysphagia, No associated headache, No associated nausea, Denies neck pain, No associated numbness, No associated pain, Associated with paralysis, No associated seizures, Denies syncope, No associated tremors, No associated visual disturbances, denies vertigo, No associated vomiting. RELIEVED BY: Patient's condition relieved by time. RISK FACTORS: Ischemic risk factors, include smoking, No hemorrhagic risk factors, No subarachnoid hemorrhage &a-1R&a+25V*p+0X*[id number]*c202B*c15G*c2P*p-0X&a-25V&a+1R Name: Obey Blanco : 1960 F56 MedRec: [id number] AcctNum: [id number] Prepared: ThuJul 16, 2016 09:10 by Interface Page 9 of 15 pMD [facility] EMERGENCY RECORD risk factors, CVA/TIA risk factors, Smoking, Oral contraceptive. NIHSS: CVA assessment findings: Level of consciousness: alert, keenly responsive (0), Questions: answers both questions correctly (0), Commands: performs both tasks correctly (0), Best gaze: normal (0), Visual: no visual loss (0), Facial palsy: normal symmetrical movement (0), Motor Left Arm: no drift, arm stays 90/45 degrees for full 10 seconds (0), Motor Right Arm: no drift, arm stays 90/45 degrees for full 10 seconds (0), Motor left leg: no drift, leg stays at 30 degrees for full five seconds (0), Motor right leg: no drift, leg stays at 30 degrees for full five seconds (0), Limb ataxia absent (0), Sensory: normal, no sensory loss (0), Best language: no aphasia; normal (0), Dysarthria: normal (0), Extinction and Inattention: normal (0), Total score 0. ROS (04:06 DHAM) CONSTITUTIONAL: Negative constitutional review of systems, Historian denies chills, denies fatigue, denies fever. EYES: Negative eye review of systems. ENT: Negative ears, nose, throat review of systems. CARDIOVASCULAR: Negative cardiovascular review of systems, Historian denies chest pain, denies diaphoresis, denies exercise intolerance, denies palpitations. RESPIRATORY: Negative respiratory review of systems, Historian denies cough, denies shortness of breath, denies sputum, denies wheezing. GI: Negative gastrointestinal review of systems, Historian denies abdominal pain, denies anorexia, denies appetite changes, denies nausea, denies vomiting. GENITOURINARY FEMALE: Historian denies dysuria, denies frequency, denies hesitancy, denies vaginal bleeding, denies vaginal discharge, denies vaginal itching. MUSCULOSKELETAL: Negative musculoskeletal review of systems, Historian denies arthralgias, denies injury, denies myalgias. SKIN: Negative skin review of systems, Historian denies rash, denies skin lesions. NEUROLOGIC: Historian denies confusion, reports focal weakness, reports gait changes, denies headache, reports paralysis, denies paresthesias, denies seizures, reports speech changes. ENDOCRINE: Negative endocrine review of systems. HEMO/LYMPHATIC: Normal hematologic/lymphatic system review. ALLERGIC/IMMUNOLOGIC: Normal allergy/immunologic system review. PSYCHIATRIC: Negative psychiatric review of systems. PAST MEDICAL HISTORY (03:58 AADK) MEDICAL HISTORY: Flu vaccine not up to date, Tetanus not up to date, Pneumococcal vaccine not up to date, Notes: MITRAL PROLAPSE, Past medical history includes cardiac history, unspecified arrhythmia, arrhythmia, SKIPS BEATS. REVIEWED 07/16/16. &a-1R&a+25V*p+0X*[id number]*c202B*c15G*c2P*p-0X&a-25V&a+1R Name: Obey Blanco : 1960 F56 MedRec: [id number] AcctNum: [id number] Prepared: ThuJul 16, 2016 09:10 by Interface Page 10 of 15 pMD [facility] EMERGENCY RECORD FEMALE SURGICAL HISTORY: Surgical history of hysterectomy, "TUMMY TUCK", Surgical history of orthopedic surgery, LEFT KNEE x 3 and a 4th for artificial knee replacement. REVIEWED 07/16/16. PSYCHIATRIC HISTORY: Psychiatric history includes, depression, REVIEWED 07/16/16. SOCIAL HISTORY: Patient currently uses tobacco, Patient smokes cigarettes, Patient smokes 1/2 packs per day, Patient denies alcohol use, Patient denies drug use. REVIEWED 07/16/16. FAMILY HISTORY: Maternal history of neurologic disorder, ischemic cerebral vascular accident, Family history includes early coronary artery disease, mother, father, both with CAD/CABG in early to mid 50s. REVIEWED 07/16/16. PHYSICAL EXAM (04:07 DHAM) CONSTITUTIONAL: Vital Signs Reviewed, Patient afebrile, Pulse normal, Blood pressure normal, Respiratory rate normal, Normal pulse oximetry, Patient appears non toxic, Patient appears pain free, Patient alert and oriented to person, place and time, Nursing notes reviewed. HEAD: Head exam included findings of head atraumatic, normocephalic. EYES: Eye exam included findings of eyelids normal to inspection, Pupils equally round and reactive to light, Extraocular muscles intact, Conjunctiva normal, Sclera normal, Eye exam included findings of anterior chamber clear. ENT: Ear exam normal, external ear normal, tympanic membranes normal, no foreign body, no drainage, no bleeding, hearing normal, Nose exam normal, no nasal deformity, no bleeding from nares, no bleeding from hypopharynx, no foreign body visualized, no septal hematoma, no septal necrosis, No turbinate mucosa discharge, Pharynx exam normal, not injected, no swelling, symmetrical, Uvula exam normal, midline, no edema, Tonsil exam normal, not enlarged, no exudates, Mouth exam normal, mucous membranes moist, no drooling, no lesions, no lacerations, no tongue elevation, teeth normal. NECK: Neck exam included findings of normal range of motion, Trachea midline, Thyroid normal, no meningeal signs, no cervical adenopathy, no tenderness, no contusions, no ecchymosis. RESPIRATORY CHEST: Respiratory exam included findings of no respiratory distress, Breath sounds clear, No wheezing, No rales, No rhonchi, Breath sounds not diminished, Chest exam included findings of chest movement symmetrical. CARDIOVASCULAR: Cardiovascular exam included findings of heart rate regular rate and rhythm, Heart sounds normal, normal S1, normal S2, no murmurs, no rub, no gallop. ABDOMEN FEMALE: Abdominal exam included findings of abdomen nontender, Bowel sounds normal, Liver normal, Spleen normal, no distension, no pulsatile masses, no peritoneal signs, no ventral hernia. BACK: Back exam normal. &a-1R&a+25V*p+0X*g4378F*c202B*c15G*c2P*p-0X&a-25V&a+1R Name: Obey Blanco : 1960 F56 MedRec: [id number] AcctNum: [id number] Prepared: ThuJul 16, 2016 09:10 by Interface Page 11 of 15 pMD [facility] EMERGENCY RECORD UPPER EXTREMITY: Upper extremity exam normal, Upper extremity exam included findings of inspection normal, no abrasions, no contusions, no deformity, no lacerations, Range of motion normal, Motor strength normal, Sensation intact, Brachial pulse normal, Radial pulse normal. LOWER EXTREMITY: Lower extremity exam normal, Lower extremity exam included findings of inspection normal, no abrasions, no contusions, no deformity, no lacerations, Range of motion normal, Motor strength normal, Sensation intact, Pedal pulse normal, Joel's negative, no edema, no calf tenderness. NEURO: Neuro exam findings include patient oriented to person, place and time, Speech normal, Gait normal, [place] coma scale 15, Memory normal, Cranial nerves intact, Deep tendon reflexes normal, no focal motor deficits, no focal sensory deficits. SKIN: Skin exam included findings of skin warm, dry, and normal in color, no rash. LYMPHATIC: Lymphatic exam normal, Lymphatic exam included findings of cervical nodes normal. PSYCHIATRIC: Psychiatric exam included findings of patient oriented to person place and time, Normal affect, Judgment normal, Insight normal, Remote memory normal, Recent memory normal, Concentration normal, No suicidal ideations, No homicidal ideations. EVENTS TRANSFER: Triage to Emergency Emergency Room -. (03:52 AADK) Removed from Emergency Emergency Room -. (07:08 AADK) RADIOLOGYINTERPRETATION (04:17 DHAM) HEAD: Head CT negative, without contrast, no bleed, no mass, no acute ischemic stroke, no acute changes. EKG INTERPRETATION (04:05 DHAM) 12 LEAD EKG INTERPRETATION: 12 lead EKG interpreted by Emergency Department Physician at time of study, 12 lead EKG shows normal sinus rhythm, Rate (beats per minute): 69, with no ectopics, No previous EKG available for comparison, Interpretation: normal EKG, Conduction normal, ST segments normal, T waves normal, [place] normal, Clinical impression: Normal EKG. O2SAT INTERPRETATION (04:07 DHAM) O2SAT: Single pulse oximetry, Oxygen saturation 93%, on room air, Oxygen saturation interpretation: Normal, No intervention required. DOCTOR NOTES TEXT: ABCD2=4. Pt discussed with Dr. Menchaca at [facility] at 0424 who accepts in transfer PENDING BED AVAILABILITY. There are 18 holding already. Family is ok with us calling [facility] and we have notified the transfer center at 0430 to contact [facility]. At 0430 while discussing the findings on the CT and our plans for transfer, &a-1R&a+25V*p+0X*r0986B*c202B*c15G*c2P*p-0X&a-25V&a+1R Name: Obey Blanco : 1960 F56 MedRec: [id number] AcctNum: [id number] Prepared: Wed Jul 16, 2016 09:10 by Interface Page 12 of 15 pMD [facility] EMERGENCY RECORD the pt had a 5-10 second spell of slurred speech and just a hint of ataxia of the right upper extremity. This resolved very quickly. This occurred just after her swallow study and taking ASA 324mg orally. (04:10 DHAM) 0505 I repeated NIHSS=1 (with only the right side sensation feeling different than the left.) She had some right leg drift per the nurse just a minute ago but I do not detect it at this time. she is very accurate with finger to nose bilat but just a bit slower on the right side. Her fine motor skills are decreased on the right hand as evidenced by her "messy signature" with the right hand as well. I suspect the patient will have some ischemic findings on MRI but with her NIHSS being 1-2, she does not appear to be indicated for tpa at this time. I have discussed this with the pt and her . (05:07 DHAM) Transfer center connected us with Dr. Mendez who would not change our care at this point. He would not recommend statin at this point. (05:24 DHAM) Have discussed the pt with Dr. Winkler at [facility] in [place]. The hospitalist has accepted the pt there at 0547. We are awaiting bed assignment but beds are available. (05:43 DHAM) PROBLEM LIST No recorded problems DIAGNOSIS (05:48 DHAM) FINAL: PRIMARY: transient ischemic attack. DISPOSITION PATIENT: Disposition Type: Transfer, Disposition: [facility]. (05:48 DHAM) Patient left the department. (07:08 AADK) PRESCRIPTION No recorded prescriptions IMAGING *EKG: Image captured from scanner. (04:18 AADK) MONITOR STRIPS: Image captured from scanner. (04:36 AADK) STROKE PACKET: Image captured from scanner. (04:40 AADK) CT REPORT: Image captured from scanner. (04:42 MVIL) STROKE PACKET: Page 2 added. Image captured from scanner. (04:42 AADK) *MEMORANDUM OF TRANSFER: Image captured from scanner. (06:35 AADK) PHYSICIAN CERTIFICATION STATEMENT: Image captured from scanner. (06:35 AADK) CONSENTS: Image captured from scanner. (06:35 AADK) *SUPPLY CHARGE SHEET: Image captured from scanner. (06:36 AADK) ADMIN (08:56 DHAM) &a-1R&a+25V*p+0X*o4757M*c202B*c15G*c2P*p-0X&a-25V&a+1R Name: Obey Blanco : 1960 F56 MedRec: [id number] AcctNum: [id number] Prepared: ThuJul 16, 2016 09:10 by Interface Page 13 of 15 pMD [facility] EMERGENCY RECORD DIGITAL SIGNATURE: MD Person Darren. RESULTS (06:40 AADK) LABORATORY: Cardiac Profile w/CKMB & TropI Collection DT: ThuJul 16, 2016 04:20, CKMB 2.0 ng/mL, Range (0-6.6), Troponin I 0.016 ng/mL, Range (< 0.028), Reference Range , 0.00 - 0.028 ng/mL Negative 0.029 - 0.29 ng/mL , Indeterminate Greater or Equal to 0.3 ng/mL Strongly suggests AL , . Comprehensive Metabolic Panel Collection DT: ThuJul 16, 2016 04:20, Sodium 140 mmol/L, Range (136-145), Potassium 3.6 mmol/L, Range (3.5-5.1), *Chloride 111 - H mmol/L, Range (98-107), Carbon Dioxide 22 mmol/L, Range (22-29), Anion Gap 11 mmol/L, Range (10-20), BUN (Urea Nitrogen) 14 mg/dL, Range (9.8-20.1), Creatinine 0.69 mg/dL, Range (0.6-1.1), Estimated GFR-MDRD 89 , Reference Range for Estimated GFR: Greater than 90, mL/min/1.73 m2 NOTE: The MDRD equation has not been validated for use, with the elderly (over 70 years of age), women, patients with, serious comorbid condition or persons with extremes of body size, muscle, mass, or nutritional status. , Glucose 90 mg/dL, Range (70-105), Calcium 8.9 mg/dL, Range (7.8-10.44), Bilirubin, Total 0.3 mg/dL, Range (0.2-1.2), Protein, Total 6.3 g/dL, Range (6.0-8.3), NOTE: Plasma values are generally 0.3 to 0.5 g/dL higher than serum values, due to the presence of fibrinogen. , Albumin 3.8 g/dL, Range (3.5-5.0), Globulin 2.5 g/dL, Range (2.4-3.5), Alb/Glob Ratio 1.5 g/dL, Range (1.2-2.2), Alkaline Phosphatase 64 U/L, Range (40-150), AST (SGOT) 17 U/L, Range (5-34), ALT (SGPT) 18 U/L, Range (0-55). PTT Collection DT: ThuJul 16, 2016 04:20, See comment below , Anticoagulant? NONE Medical Necessity SUSPECT COAGULOPATHY , PTT 31.8 SEC, Range (22.9-36.1). Protime with INR Collection DT: ThuJul 16, 2016 04:20, See comment below , Anticoagulant? NONE Medical Necessity SUSPECT COAGULOPATHY , Prothrombin Time 12.7 SEC, Range (12.0-14.7), INR-International Normal Ratio 0.9 , ATTENTION: READ &a-1R&a+25V*p+0X*u1382X*c202B*c15G*c2P*p-0X&a-25V&a+1R Name: Obey Blanco : 1960 F56 MedRec: [id number] AcctNum: [id number] Prepared: ThuJul 16, 2016 09:10 by Interface Page 14 of 15 pMD [facility] EMERGENCY RECORD CAREFULLY , The, recommended therapeutic ranges for oral anticoagulant treatments are: , , Low Intensity: 1.5 - 2.0 Moderate Intensity: 2.0, - 3.0 High Intensity (1): 2.5 - 3.5 High, Intensity (2): 3.0 - 4.0 CRITICAL: >, 4.0 . Accuchek Collection DT: ThuJul 16, 2016 04:26, Accuchek 87 mg/dL, Range (70-110). CBC with Differential Collection DT: ThuJul 16, 2016 04:20, White Blood Cell (WBC) Count 8.8 thou/uL, Range (4.8-10.8), Red Blood Cell (RBC) Count 4.40 mill/uL, Range (4.20-5.40), Hemoglobin 13.6 g/dL, Range (12.0-16.0), Hematocrit 42.0 %, Range (36.0-47.0), Mean Corpuscular Volume 95.5 fl, Range (81.0-99.0), Mean Corpuscular Hemoglobin 30.8 pg, Range (27.0-31.0), Mean Corpuscular HGB CONC 32.3 g/dL, Range (32.0-36.0), *RBC Distribution Width 11.2 - L %, Range (11.5-14.5), Platelet Count 214 thou/uL, Range (130-400), Mean Platelet Volume 8.2 fL, Range (7.4-10.4), %Neutrophils 48.7 %, Range (42.0-75.0), %Lymphocytes 38.2 %, Range (21.0-51.0), %Monocytes 7.7 %, Range (0.0-10.0), %Eosinophils 4.0 %, Range (0.0-10.0), *%Basophils 1.4 - H %, Range (0.0-1.0), #Neutrophils 4.3 thou/uL, Range (1.40-6.50), #Lymphocytes 3.4 thou/uL, Range (1.20-3.40), *#Monocytes 0.7 - H thou/uL, Range (0.11-0.59), #Eosinphils 0.4 thou/uL, Range (0.0-0.7), #Basophils 0.1 thou/uL, Range (0.0-0.2). Hebert: DORIAN=MABEL Bermudez, Penny SANTANA=MD Raza, [employer]upo COSTAIL=MABEL Ruano, Kaitlin &a-1R&a+25V*p+0X*r6962L*c202B*c15G*c2P*p-0X&a-25V&a+1R Name: Obey Blanco : 1960 F56 MedRec: [id number] AcctNum: [id number] Prepared: ThuJul 16, 2016 09:10 by Interface Page 15 of 15 pMD [facility]TDD
--- NOTE | 2016-07-16 11:07 | CT ---
PRELIMINARY REPORT/[facility]/EMERGENCY AFTER HOURS PROCEDURE: EXAM: CT Head Without Intravenous Contrast. CLINICAL HISTORY: 56 years old, female; Signs and symptoms; Numbness / parasthesia and speech disturbance; Aphasia; Pa stefani HX: Pt presents to the er for stroke like symptoms; TECHNIQUE: Axial computed tomography images of the head/brain without intravenous contrast. COMPARISON: No relevant prior studies available. FINDINGS: Brain: Normal. No significant white matter disease. No edema. No evidence of acute infarction. No in tracranial hemorrhage. Ventricles: Normal for age. Bones/joints: Normal. No acute fracture. Soft tissues: Normal. Sinuses: Mild mucosal thickening in the sphenoid sinus. Mastoid air cells: Normal as visualized. No mastoid effusion. IMPRESSION: No acute intracranial abnormality. Thank you for allowing us to participate in the care of your patient. Dictated and Authenticated by: Mark Das MD 07/16/2016 4:14 AM Central Time ([place] \T\ [facility]) FINAL REPORT CT OF THE BRAIN WITHOUT CONTRAST: DATE: 07/16/16. FINDINGS: A noncontrast CT was performed. The ventricles are normal in size with no shift. No intracranial b leeding, mass, or definite sign of an acute stroke was found. If signs and symptoms point to the la tter, an MRI might be more sensitive. IMPRESSION: No acute intracranial findings. Report in agreement with preliminary reading by [facility]. POS: HOME
== END 2016-07-16 07:04 | disposition short-term general hospital (02) ==
LOC: BURERS 03:46
DX: G45.9 Transient cerebral ischemic attack, unspecified (principal); F32.9 Major depressive disorder, single episode, unspecified; F17.210 Nicotine dependence, cigarettes, uncomplicated
CPT/HCPCS: 36416; 70450; 80053; 82553; 84484; 85025; 85610; 85730; 93005; 94760

== ENCOUNTER 2016-09-11 13:37 | Outpatient (CLI) | payer OTHER ==
--- NOTE | 2016-09-12 07:54 | MRI ---
LUMBAR SPINE MRI WITHOUT IV CONTRAST: Date: 09/11/16 HISTORY: 56-year-old female with low back pain and lumbar discogenic pain syndrome. TECHNIQUE: Multiplanar, multisequence MRI examination of the lumbar spine is performed. FINDINGS: The conus medullaris region is unremarkable, terminating at T12-L1. There are mild generalized disc desiccation changes and degenerative changes. At L1-L2, there is no herniation, or canal or foraminal stenosis. There is an oval circumscribed T1 intermediate and T2 intermediate intensity mass in the right ventral lateral recess region at the up per L2-L3 level. This certainly could represent sequestered disc herniation. The possibility of a so ft tissue tumor cannot be totally excluded. Follow-up post IV contrast MRI study with attention to t his region would allow for further characterization. The L3-L4 disc level is unremarkable. L4-L5 demonstrates desiccation change and mild disc bulging without significant central canal or for aminal stenosis. L5-S1 disc is unremarkable. IMPRESSION: 1. Focal abnormal T2 and T1 intermediate density nodular focus in the ventral right lateral recess region just cranial to the L2-L3 disc with concern for focal area of disc sequestration versus a mikayla id tumor. Follow-up postcontrast MRI would allow further characterization of this. 2. Some disc desiccation changes at L4-L5 without associated canal or foraminal stenosis. POS: DA
== END 2016-09-11 13:38 | disposition home or self-care (01) ==
LOC: BURMRI 13:37
PROVIDERS: ATTEND Family Medicine
DX: M51.26 Other intervertebral disc displacement, lumbar region (principal)
CPT/HCPCS: 72148

== ENCOUNTER 2017-02-01 20:15 | Emergency (ER) | payer OTHER ==
[2017-02-01] MEDS ORDERED: Ketorolac Tromethamine 60 MG/2 ML VIAL ONE (20:39)
[2017-02-01] MEDS ORDERED: Diazepam 5 MG TAB ONE (20:39)
--- NOTE | 2017-02-01 23:09 | RAD ---
LEFT RIBS PA CHEST: Date: 02-01-17 FINDINGS: Films of the ribs show no fracture or area of bony destruction. All appeared intact. There may be an old healed injury to the distal end of the left 10th rib. The PA chest film in the series showed a normal sized heart and clear lungs. There has been no adverse change since the 08-07-14 study done at [facility]. The trachea is midline. The bony structures were unremarkable. IMPRESSION: No significant finding. POS: HOME
== END 2017-02-01 21:15 | disposition home or self-care (01) ==
LOC: BURERS 20:15
DX: S23.41XA Sprain of ribs, initial encounter (principal); F32.9 Major depressive disorder, single episode, unspecified; F17.210 Nicotine dependence, cigarettes, uncomplicated; Z86.73 Personal history of transient ischemic attack (TIA), and cerebral infarction without residual deficits; Z79.82 Long term (current) use of aspirin; Z79.899 Other long term (current) drug therapy; X58.XXXA Exposure to other specified factors, initial encounter
CPT/HCPCS: 96372; J1885

== ENCOUNTER 2017-04-26 20:09 | Emergency (ER) | payer BC, OTHER ==
[2017-04-26 20:32] LABS: #Basophils 0.1 thou/uL (0.0-0.2); #Eosinphils 0.3 thou/uL (0.0-0.7); #Lymphocytes 3.3 thou/uL (1.20-3.40); #Monocytes 0.7 thou/uL (0.11-0.59); #Neutrophils 5.5 thou/uL (1.40-6.50); %Eosinophils 2.6 % (0.0-10.0); %Lymphocytes 33.6 % (21.0-51.0); %Monocytes 6.9 % (0.0-10.0); Hemoglobin 14.6 g/dL (12.0-16.0); Mean Corpuscular HGB CONC 33.5 g/dL (32.0-36.0); Mean Corpuscular Hemoglobin 32.2 pg (27.0-31.0); Mean Corpuscular Volume 96.2 fl (81.0-99.0); Mean Platelet Volume 9.7 fL (7.4-10.4); Platelet Count 195 thou/uL (130-400); RBC Distribution Width 11.2 % (11.5-14.5); Red Blood Cell (RBC) Count 4.54 mill/uL (4.20-5.40); White Blood Cell (WBC) Count 9.9 thou/uL (4.8-10.8)
[2017-04-26 20:43] LABS: ALT (SGPT) 32 U/L (8-55); AST (SGOT) 24 U/L (5-34); Albumin 4.3 g/dL (3.5-5.0); Alkaline Phosphatase 88 U/L (40-150); Anion Gap 14 mmol/L (10-20); BUN (Urea Nitrogen) 12 mg/dL (9.8-20.1); Bilirubin, Total 0.4 mg/dL (0.2-1.2); Calc. Creatinine Clearance 0 mL/min (70-130); Calcium 9.5 mg/dL (7.8-10.44); Carbon Dioxide 25 mmol/L (22-29); Chloride 104 mmol/L (98-107); Estimated GFR-MDRD 82; Glucose 95 mg/dL (70-105); Potassium 3.9 mmol/L (3.5-5.1); Protein, Total 7.3 g/dL (6.0-8.3); Sodium 139 mmol/L (136-145)
[2017-04-26 20:44] LABS: CKMB 1.6 ng/mL (0-6.6); Troponin I Less than 0.010 ng/mL (< 0.028)
--- NOTE | 2017-04-26 21:59 | CT ---
CT BRAIN WITHOUT CONTRAST: Date: 04-26-17 Comparison: 07-16-16 FINDINGS: The ventricles are normal in size. There is no convincing sign of acute stroke, though MRI would be more sensitive to such. No bleeding, mass, or edema was seen. The skull is normal in appearance. The sphenoid sinus and visible paranasal sinuses are clear. IMPRESSION: No acute intracranial findings. POS: HOME
== END 2017-04-26 21:12 | disposition home or self-care (01) ==
LOC: BURERS 20:09
DX: R07.9 Chest pain, unspecified (principal); I49.9 Cardiac arrhythmia, unspecified; F32.9 Major depressive disorder, single episode, unspecified; F17.210 Nicotine dependence, cigarettes, uncomplicated
CPT/HCPCS: 70450; 80053; 82553; 84484; 85025; 93005